=== PATIENT | female | born 1960 | race Caucasian/White ===

== ENCOUNTER 2020-06-07 12:32 | Emergency (ER) | payer OTHER ==
[~2020-06-07] VITALS: Ht 152.4 cm; Wt 49.9 kg
[~2020-06-07 12:32] MED LIST: AVAPRO 150 MG150 M1; AZITHROMYCIN 2250 MG PO; CARISOPRODOL 3350 MG PO; CINNAMON500 MG PO; COMBIVENT; GLUCOPHAGE XR500 MG PO; LEVOTHYROXIN0.112 M1 PO; LEVOTHYROXIN0.125 M1 PO; MAGOX 400400 MG; MECLIZINE HCL25 M1 PO; MEDROLDOSEPACK PO; NORCO 5-325 TA1 EACH PO; PRAVACHOL40 MG PO; PROTONIX40 M2 PO; VITAMIN B12-FO1 EAC1 PO; VITAMIN D1000 UNI1 PO; VITAMINC500 PO
[2020-06-07 13:48] VITALS: BP 138/78
== END 2020-06-07 13:49 | disposition home or self-care (01) ==
LOC: M.ERS 12:32
DX: S61.206A Unspecified open wound of right little finger without damage to nail, initial encounter (principal); G43.909 Migraine, unspecified, not intractable, without status migrainosus; K21.9 Gastro-esophageal reflux disease without esophagitis; F98.8 Other specified behavioral and emotional disorders with onset usually occurring in childhood and adolescence; F17.210 Nicotine dependence, cigarettes, uncomplicated; Z90.49 Acquired absence of other specified parts of digestive tract; Z90.711 Acquired absence of uterus with remaining cervical stump; Z79.2 Long term (current) use of antibiotics; Z79.899 Other long term (current) drug therapy; Z88.8 Allergy status to other drugs, medicaments and biological substances; Z88.0 Allergy status to penicillin; Z88.2 Allergy status to sulfonamides; W45.8XXA Other foreign body or object entering through skin, initial encounter; Y93.89 Activity, other specified; Y92.89 Other specified places as the place of occurrence of the external cause; Y99.8 Other external cause status

== ENCOUNTER 2020-08-15 13:41 | Emergency (ER) | payer OTHER ==
[~2020-08-15] VITALS: Ht 152.4 cm; Wt 50.8 kg
[2020-08-15] MEDS ORDERED: AVAPRO300 MG PO (14:55)
[2020-08-15 17:21] LABS: ABSOLUTE BASOPHILS 0.1 thou/uL (0.0-0.2); ABSOLUTE EOSINOPHILS 0.3 thou/uL (0.0-0.7); ABSOLUTE LYMPHOCYTES 2.6 thou/uL (0.8-5.3); ABSOLUTE MONOCYTES 0.7 thou/uL (0.0-1.2); ABSOLUTE NEUTROPHILS 5.6 thou/uL (1.6-8.1); BASOPHILS 1.4 %; EOSINOPHILS 2.8 %; HEMATOCRIT 40.8 % (37.0-47.0); HEMOGLOBIN 14.1 gm/dL (12.0-15.0); LYMPHOCYTES 28.1 %; MCH 30.8 pg (26.0-34.0); MCHC 34.4 g/dL (28.0-37.0); MCV 89.6 fL (80.0-100.0); MONOCYTES 7.4 %; MPV 7.9 fl. (7.2-11.1); NUCLEATED RBCS 0 /100WBC; PLATELET COUNT* 279 thou/uL (150-400); POLYS 60.3 %; RBC 4.56 mil/uL (4.20-5.00); RDW-CV 12.9 % (10.5-14.5); WBC 9.3 thou/uL (4.0-11.0)
[2020-08-15 17:31] LABS: CREATININE 0.5 mg/dL (0.6-1.3); POTASSIUM 4.2 mmol/L (3.5-5.1)
[2020-08-15 17:40] LABS: ALBUMIN 3.9 g/dL (3.4-5.0); TOTAL BILIRUBIN 0.2 mg/dL (<0.1-1.0); TOTAL PROTEIN 7.4 g/dL (6.4-8.2)
[2020-08-15] MEDS ORDERED: NORCO5 PO (19:22)
[2020-08-15 19:34] VITALS: BP 152/75
--- NOTE | 2020-08-16 12:02 | EKG ---
[place] [address] ELECTROCARDIOGRAM REPORT Name: BARRETT VERAS Room: [facility]#: [id number] Admission: 08/15/20 Attend Phys: Discharge: 08/15/20 Date of : 56 Date of Service: 08/15/201711 Report #: [id number] THIS REPORT FOR: //name// [facility] ED Test Date: 2020-08-15 Test Time: 17:12:51 Pat Name: BARRETT VERAS Department: Room: Gender: F [place]: : 1960 Requested By: Lilibeth Tatum Order Number: [id number] : Torsten Vinson Measurements Intervals Hurt Rate: 59 P: 56 IL: 128 QRS: 53 QRSD: 95 T: 59 QT: 438 QTc: 434 Interpretive Statements Sinus rhythm Probable left atrial enlargement Left ventricular hypertrophy Compared to ECG 10/05/2013 12:52:42 Left ventricular hypertrophy now present Electronically Signed On 08-16-2020 12:02:29 CDT by Torsten Vinson [email or web address] <ELECTRONICALLY SIGNED> By: Torsten Vinson MD, FACC 08/16/20 1202 171 11 Torsten Vinson MD, [facility] /EPI
== END 2020-08-15 19:34 | disposition home or self-care (01) ==
LOC: M.ERS 13:41
PROVIDERS: Nurse Practitioner Family
DX: S20.212A Contusion of left front wall of thorax, initial encounter (principal); S20.211A Contusion of right front wall of thorax, initial encounter; S00.83XA Contusion of other part of head, initial encounter; I10 Essential (primary) hypertension; G43.909 Migraine, unspecified, not intractable, without status migrainosus; K21.9 Gastro-esophageal reflux disease without esophagitis; F17.210 Nicotine dependence, cigarettes, uncomplicated; Z88.2 Allergy status to sulfonamides; Z88.0 Allergy status to penicillin; Z88.6 Allergy status to analgesic agent; Z88.8 Allergy status to other drugs, medicaments and biological substances; Z90.49 Acquired absence of other specified parts of digestive tract; Z90.711 Acquired absence of uterus with remaining cervical stump; W18.39XA Other fall on same level, initial encounter; Y93.89 Activity, other specified; Y92.89 Other specified places as the place of occurrence of the external cause; Y99.8 Other external cause status